=== PATIENT | female | born 2000 | race Caucasian/White ===

== ENCOUNTER → 2024-11-24 | Outpatient (CLI) | payer BC, MEDICAID, SELFPAY ==
[2024-11-24 12:36] LABS: Alanine Aminotransferase 23 U/L (10-49); Albumin, Serum 4.8 gm/dL (3.5-5.0); Albumin/Globulin Ratio 1.9 (1.2-2.2); Alkaline Phosphatase 53 U/L (46-116); Anion Gap 9 (7-16); Aspartate Amino Transferase 15 U/L (0-34); BUN/Creatinine Ratio 10 Ratio (12-20); Bilirubin,Total 0.5 mg/dL (0.3-1.2); Blood Urea Nitrogen 9 mg/dL (9-23); Calcium 9.8 mg/dL (8.3-10.6); Calcium (Corrected) 9.8 mg/dL (8.5-10.1); Cardiac Risk Estimate 7.1 RATIO (3.7-5.6); Chloride 104 mMol/L (98-107); Cholesterol 228 mg/dL (132-200); Creatinine (Component) 0.9 mg/dL (0.6-1.3); Globulin 2.5 gm/dL (2.3-3.5); Glucose 89 mg/dL (74-106); HDL Cholesterol 32 mg/dL (40-60); LDL Cholesterol,Calculated 155 mg/dL (0-130); Osmolality,Calculated 275 (275-295); Potassium 4.4 mMol/L (3.4-5.1); Sodium 139 mMol/L (136-145); Total Protein 7.3 gm/dL (5.7-8.2); Triglycerides 203 mg/dL (30-150); eGFR > 60 See Note
== END | disposition home or self-care (01) ==
PROVIDERS: PCP Family Medicine; Referring Provider Physician Assistant; Visit Provider Physician Assistant
DX: E78.5 Hyperlipidemia, unspecified (principal)
CPT/HCPCS: 36415; 80053; 80061

== ENCOUNTER → 2025-01-19 | Outpatient (CLI) | payer BC, MEDICAID, SELFPAY ==
--- NOTE | 2025-01-19 14:35 | XR_ITS ---
Examination: Temporomandibular joints 3 views, left Technique: Chloe, sagittal oblique left temporomandibular joint open and closed mouth total 3 views Exam date and time: January 19, 2025 1440 hrs. Indications: Left temporomandibular joint pain months Findings: Mandibular condyle on the left appears intact Mildly reduced anterior translation of the mandibular condyle in the open mouth position No fracture No significant arthritic change Impression: Mildly reduced anterior translation of the mandibular condyle in the open-mouth position If displaced temporomandibular meniscus is a clinical consideration, recommend MRI temporomandibular joints follow-up
== END | disposition home or self-care (01) ==
LOC: CDIM 14:17
PROVIDERS: PCP Family Medicine; Referring Provider Physician Assistant; Visit Provider Physician Assistant
DX: M26.602 Left temporomandibular joint disorder, unspecified (principal)
CPT/HCPCS: 70328

== ENCOUNTER → 2025-01-26 | Outpatient (CLI) | payer BC, MEDICAID, SELFPAY ==
[2025-01-26 13:12] LABS: Glucose Estimated Average 97 mg/dL (80-131)
[2025-01-26 13:21] LABS: Anion Gap 8 (7-16); BUN/Creatinine Ratio 14 Ratio (12-20); Blood Urea Nitrogen 11 mg/dL (9-23); Calcium 10.1 mg/dL (8.3-10.6); Carbon Dioxide 25.3 mMol/L (20.0-31.0); Cardiac Risk Estimate 6.6 RATIO (3.7-5.6); Chloride 106 mMol/L (98-107); Cholesterol 237 mg/dL (132-200); Creatinine (Component) 0.8 mg/dL (0.6-1.3); Free T4 (Free Thyroxine) 1.41 ng/dL (0.89-1.76); Glucose 86 mg/dL (74-106); HDL Cholesterol 36 mg/dL (40-60); LDL Cholesterol,Calculated 160 mg/dL (0-130); Osmolality,Calculated 275 (275-295); Sodium 139 mMol/L (136-145); Triglycerides 206 mg/dL (30-150); eGFR > 60 See Note
[2025-02-13 06:53] LABS: 17-Hydroxyprogesterone* 97 ng/dL; DHEA Sulfate* 347 mcg/dL (18-391); Prolactin* 13.8 ng/mL; Testosterone,Total* 30 ng/dL (2-45)
== END | disposition home or self-care (01) ==
LOC: COPL 11:35
PROVIDERS: PCP Physician Assistant; Referring Provider Internal Medicine Endocrinology, Diabetes & Metabolism; Visit Provider Internal Medicine Endocrinology, Diabetes & Metabolism
DX: E28.2 Polycystic ovarian syndrome (principal)
CPT/HCPCS: 36415; 80048; 80061; 82627; 83036; 83498; 84146; 84403; 84439; 84443

== ENCOUNTER → 2025-02-20 | Outpatient (CLI) | payer BC, SELFPAY ==
[2025-02-20 11:16] LABS: Collection Type, Urine Clean Catch
[2025-02-20 11:56] LABS: Basophils % (Auto) 0 % (0-2.5); Eosinophils # (Auto) 0.1 Thou/mm3 (0.0-0.5); Eosinophils % (Auto) 1 % (0-10); Hematocrit 42.3 % (36.0-46.0); Hemoglobin 13.9 g/dL (12.0-16.0); Immature Granulocytes % (Auto) 1 % (0-0); Immature Granulocytes Auto 0.05 Thou/mm3 (0.00-0.00); Lymphocytes # (Auto) 2.1 Thou/mm3 (1.0-4.8); Lymphocytes % (Auto) 21 % (10-50); Mean Corpuscular HGB Conc 32.9 g/dl (31.0-37.0); Mean Corpuscular Hemoglobin 28.4 pg (25.0-35.0); Mean Corpuscular Volume 87 fL (80-100); Monocytes # (Auto) 0.8 Thou/mm3 (0.0-0.8); Monocytes % (Auto) 8 % (0-12); Neutrophils # (Auto) 6.9 Thou/mm3 (1.8-7.7); Neutrophils % (Auto) 70 % (37-80); Nucleated Red Blood Cell % 0 /100 WBC (0); Platelet Count 323 Thou/mm3 (140-440); Red Blood Count 4.89 Miln/mm3 (4.00-5.20); White Blood Count 9.9 Thou/mm3 (3.6-11.0)
[2025-02-20 12:07] LABS: Vitamin D 25 Hydroxy Total 24.9 ng/mL (7.3-40.2)
[2025-02-20 12:09] LABS: Amorphous Crystals,Urine Present (Absent); Bacteria,Urine 3+; Bilirubin,Urine Negative (Negative); Blood,Urine Negative (Negative); Clarity,Urine Turbid (Clear/Hazy); Color,Urine Yellow (Lt Yel-Yel); Culture Indicated,Urine Contaminated; Glucose, Urine Negative (Negative); Ketones,Urine Negative (Negative); Leukocyte Esterase,Urine Positive (Negative); Nitrite,Urine Negative (Negative); PH,Urine 5.5 (5.0-7.0); Protein,Urine Negative (Neg - Trace); RBC,Urine 1 /hpf (0-3); Specific Gravity,Urine 1.014 (1.001-1.035); Squamous Epithelial Cell,Urine 15 /hpf (0-5); Urobilinogen,Urine Negative mg/dL (0.0-1.0); WBC,Urine 9 /hpf (0-5)
[2025-02-20 12:11] LABS: Alanine Aminotransferase 42 U/L (10-49); Albumin, Serum 4.7 gm/dL (3.5-5.0); Albumin/Globulin Ratio 1.9 (1.2-2.2); Alkaline Phosphatase 58 U/L (46-116); Anion Gap 10 (7-16); Aspartate Amino Transferase 21 U/L (0-34); BUN/Creatinine Ratio 16 Ratio (12-20); Bilirubin,Total 0.5 mg/dL (0.3-1.2); Blood Urea Nitrogen 13 mg/dL (9-23); Calcium 9.8 mg/dL (8.3-10.6); Calcium (Corrected) 9.8 mg/dL (8.5-10.1); Carbon Dioxide 24.5 mMol/L (20.0-31.0); Cardiac Risk Estimate 7.3 RATIO (3.7-5.6); Chloride 107 mMol/L (98-107); Cholesterol 248 mg/dL (132-200); Creatinine (Component) 0.8 mg/dL (0.6-1.3); Globulin 2.5 gm/dL (2.3-3.5); Glucose 95 mg/dL (74-106); HDL Cholesterol 34 mg/dL (40-60); LDL Cholesterol,Calculated 163 mg/dL (0-130); Osmolality,Calculated 281 (275-295); Potassium 4.9 mMol/L (3.4-5.1); Sodium 141 mMol/L (136-145); Thyroid Stimulating Hormone 1.67 uIU/mL (0.55-4.78); Total Protein 7.2 gm/dL (5.7-8.2); Triglycerides 254 mg/dL (30-150); eGFR > 60 See Note
== END | disposition home or self-care (01) ==
PROVIDERS: PCP Physician Assistant; Referring Provider Physician Assistant; Visit Provider Physician Assistant
DX: Z00.00 Encounter for general adult medical examination without abnormal findings (principal); E78.5 Hyperlipidemia, unspecified; E55.9 Vitamin D deficiency, unspecified
CPT/HCPCS: 36415; 80053; 80061; 81001; 82306; 84443; 85025

== ENCOUNTER → 2025-07-06 | Outpatient (CLI) | payer BC, MEDICAID, SELFPAY ==
[2025-07-06 13:28] LABS: Alanine Aminotransferase 39 U/L (10-49); Albumin, Serum 5.0 gm/dL (3.5-5.0); Albumin/Globulin Ratio 2.0 (1.2-2.2); Alkaline Phosphatase 46 U/L (46-116); Anion Gap 10 (7-16); Aspartate Amino Transferase 24 U/L (0-34); BUN/Creatinine Ratio 8 Ratio (12-20); Bilirubin,Total 0.4 mg/dL (0.3-1.2); Blood Urea Nitrogen 7 mg/dL (9-23); Calcium 10.3 mg/dL (8.3-10.6); Calcium (Corrected) 10.3 mg/dL (8.5-10.1); Carbon Dioxide 24.6 mMol/L (20.0-31.0); Cardiac Risk Estimate 6.4 RATIO (3.7-5.6); Chloride 105 mMol/L (98-107); Cholesterol 204 mg/dL (132-200); Creatinine (Component) 0.9 mg/dL (0.6-1.3); Globulin 2.5 gm/dL (2.3-3.5); Glucose 90 mg/dL (74-106); HDL Cholesterol 32 mg/dL (40-60); LDL Cholesterol,Calculated 139 mg/dL (0-130); Osmolality,Calculated 277 (275-295); Potassium 5.0 mMol/L (3.4-5.1); Sodium 140 mMol/L (136-145); Total Protein 7.5 gm/dL (5.7-8.2); Triglycerides 163 mg/dL (30-150); eGFR > 60 See Note
== END | disposition home or self-care (01) ==
PROVIDERS: PCP Physician Assistant; Referring Provider Physician Assistant; Visit Provider Physician Assistant
DX: E78.5 Hyperlipidemia, unspecified (principal)
CPT/HCPCS: 36415; 80053; 80061

== ENCOUNTER → 2025-11-02 | Outpatient (CLI) | payer BC, MEDICAID, SELFPAY ==
[2025-11-02 14:22] LABS: Anion Gap 11 (7-16); BUN/Creatinine Ratio 8 Ratio (12-20); Blood Urea Nitrogen 6 mg/dL (9-23); Calcium 9.6 mg/dL (8.3-10.6); Carbon Dioxide 24.7 mMol/L (20.0-31.0); Cardiac Risk Estimate 6.7 RATIO (3.7-5.6); Chloride 107 mMol/L (98-107); Cholesterol 180 mg/dL (132-200); Creatinine (Component) 0.8 mg/dL (0.6-1.3); Glucose 89 mg/dL (74-106); HDL Cholesterol 27 mg/dL (40-60); LDL Cholesterol,Calculated 119 mg/dL (0-130); Osmolality,Calculated 281 (275-295); Potassium 4.2 mMol/L (3.4-5.1); Sodium 143 mMol/L (136-145); Triglycerides 168 mg/dL (30-150); eGFR > 60 See Note
== END | disposition home or self-care (01) ==
LOC: COPL 10:40
PROVIDERS: PCP Family Medicine; Referring Provider Internal Medicine Endocrinology, Diabetes & Metabolism; Visit Provider Internal Medicine Endocrinology, Diabetes & Metabolism
DX: E66.9 Obesity, unspecified (principal)
CPT/HCPCS: 36415; 80048; 80061